=== PATIENT | female | born 1970 | race Caucasian/White ===

== ENCOUNTER 2020-03-06 13:17 | Outpatient (REF) | payer BC, SELFPAY ==
--- NOTE | 2020-03-06 | XR_ITS ---
EXAMINATION: XR WRIST, RIGHT 1 VIEW XR WRIST, RIGHT 2 VIEW CLINICAL INFORMATION: Fracture COMPARISON: 02/25/2020 TECHNIQUE: AP and lateral radiographs of the right wrist in a cast followed by a repeat lateral view of the right wrist. FINDINGS: Redemonstration of the minimally displaced transverse fracture of the distal radius with reduction in dorsal angulation when compared with 02/25/2020. IMPRESSION: Minimally displaced fracture of the distal radius.
== END 2020-03-06 13:18 | disposition home or self-care (01) ==
LOC: CF 13:17
PROVIDERS: PCP Internal Medicine; Visit Provider Orthopaedic Surgery
DX: S52.501D Unspecified fracture of the lower end of right radius, subsequent encounter for closed fracture with routine healing (principal)
CPT/HCPCS: 73100; 99212

== ENCOUNTER 2020-04-03 13:22 | Outpatient (REF) | payer BC, SELFPAY ==
--- NOTE | 2020-04-03 13:27 | XR_ITS ---
EXAMINATION: XR WRIST and hand, RIGHT CLINICAL INFORMATION: Follow-up fracture COMPARISON: Previous x-rays most recent 03/06/2020 TECHNIQUE: 4 views of the right hand and wrist. FINDINGS: There is a transverse nondisplaced fracture of the distal radius. Alignment appears unchanged. There is minimal bony callus formation seen. Fracture line is still seen. No other fracture is seen. Carpal bones are unremarkable. Soft tissues are unremarkable. XR/XR wrist RT min 3V IMPRESSION: No change in right distal radius fracture from 03/06/2020.
--- NOTE | 2020-04-03 14:05 | XR_ITS ---
EXAMINATION: XR WRIST and hand, RIGHT CLINICAL INFORMATION: Follow-up fracture COMPARISON: Previous x-rays most recent 03/06/2020 TECHNIQUE: 4 views of the right hand and wrist. FINDINGS: There is a transverse nondisplaced fracture of the distal radius. Alignment appears unchanged. There is minimal bony callus formation seen. Fracture line is still seen. No other fracture is seen. Carpal bones are unremarkable. Soft tissues are unremarkable. XR/XR hand wrist RT IMPRESSION: No change in right distal radius fracture from 03/06/2020.
== END 2020-04-03 13:23 | disposition home or self-care (01) ==
LOC: HO.HOSX 13:22
PROVIDERS: PCP Internal Medicine; Referring Provider Internal Medicine; Visit Provider Orthopaedic Surgery
DX: S52.509D Unspecified fracture of the lower end of unspecified radius, subsequent encounter for closed fracture with routine healing (principal); Z79.899 Other long term (current) drug therapy
CPT/HCPCS: 73110; 73130

== ENCOUNTER 2020-04-18 13:00 | Outpatient (RCR) | payer BC, SELFPAY ==
--- NOTE | 2020-04-11 14:38 | MHC.OT.OEV ---
[address] [phone] F: [phone] Occupational Therapy Evaluation Diagnosis: Right Distal Radius Fracture Date of Onset: 03/06/20 Attending Provider: Dr Briscoe Prescribed Treatment: Eval and Treat History of Current Condition: Becky slipped on her stairs, landed down on her right hand and heard a pop, went to ED that night, x-ray found non-displaced right distal radius fracture. She was casted, then four weeks later cast removed and now in removable pre-sierra orthosis. 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 Living Situation, Family and/or Social Support: Lives alone with cats, moving in 10 days to [facility] Current Level of Function and Occupation Self Care, Employment, Leisure: Difficulty lifting her cats, opening a jar Sleep: Some pain w/ sleep, unable to use hand to repositioning w/ hand Driving: Now driving, some difficulty w/ steering wheel Pain Assessment Pain Score: 0-8 Pain Scale Used: Numeric (0 - 10) Pain Location and Description: Pain free at rest, more pain w/ supination and pronation, right ulnar wrist moreso than left Aggravating Factors: Playing piano or typing Alleviating Factors: Advil occasionally, no change with ice or heat Skin and Soft Tissue Assessment Skin and Soft Tissue: Swelling Comments: Tenderness to palpate wrist at all aspects, moreso at ulnar wrist w/ depressed ulnar styloid Edema through wrist Nerve assessment Ulnar Nerve: WNL Median Nerve: WNL Radial Nerve: WNL Sensory Assessment Light Touch: WNL Comments: Hypersensitivity/pain to touch dorsal forearm/wrist Edema Assessment Upper Extremity: Right Impaired Comments: Wrist distal to US Right 15.7 cm Left 14.7 cm Dexterity Assessment Dexterity: WNL Comments: AROM(PROM) Strength Shoulder Flexion: Extension: Abduction: Internal Rotation: External Rotation: Comments: WNL Flexion: Extension: Abduction: Internal Rotation: External Rotation: Comments: Elbow Flexion: Extension: Pronation: R 45 L 90 Supination: R 70 L 90 Comments: Ulnar pain at end range pronation Flexion: Extension: Pronation: Supination: Comments: Wrist Flexion: R 60 L 80 Extension: R 66 L 68 Ulnar Deviation: R 30 L 42 Radial Deviation: R 25 L 38 Comments: Flexion: Extension: Ulnar Deviation: Radial Deviation: Comments: Thumb Thumb CMC Flexion: Thumb MCP Flexion: Thumb IP Flexion: Radial Abduction: [place] Abduction: [place] ([place]andji 0-10): 10 B/L'ly Comments: Digits Index MCP: PIP: DIP: Long MCP: PIP: DIP: Ring MCP: PIP: DIP: Small MCP: PIP: DIP: Comments: WNL B/L'ly Gross Grasp: R 25lb L 60lb Lateral Pinch: R 13lb L 14lb Two-Point Pinch: R 5lb L 10lb Three-Jaw Lokesh: R 5lb L 15lb Comments: Pain in ulnar wrist w/ two and three point pinches Patient Education Primary Language: Hebrew 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 Patient demonstrates Patient verbalizes Barriers to Learning: None Readiness for Learning: Accepting Who was educated? Patient Plan of Care Assessment: Heather presents about six weeks s/p FOOSH injury w/ non displaced right distal radius fracture. She was casted four weeks, now in prefab orthosis. She has decreased range and strength w/ cont'd edema in wrist, also reporting more tenderness in ulnar wrist and dorsal forearm/wrist. She cont's to avoid heavy lifting, but is having difficulty w/ light everyday activities such as driving caring for her cats, playing piano and typing. She is scheduled to relocate to [facility] in 10 days, biut until will benefit from services to progress home exercise program w/ range, strength, edema and pain management. STG Duration: 2 weeks Short Term Goals: Ind w/ HEP Right gross grasp 35lb Right wrist ROM improve 5 degrees all aspects Good follow through w/ joint protection/neutral wrist prositioning QuickDASH score <25pts Ind w/ desensitization as needed Reconciling Clerk Goals: Same as above Frequency and Duration: The patient will be seen 2x/wk for 2 weeks Treatment Plan: Therapeutic Exercise Therapeutic Activity Home Exercise Program Splinting Patient Education Desensitization/Sensory Re-ed Edema Control ADL Training Paraffin Fluidotherapy MHP Cold Packs Joint Mobilization Soft Tissue Mobilization Kinesiotaping Electronically Signed By: Anita Rocha, OTR/L Please sign and return to therapist, Thank you for your referral.
--- NOTE | 2020-04-21 08:09 | MHC.OT.DC ---
[address] [phone] F: [phone] Occupational Therapy Discharge Note Provider: Dr. Briscoe Diagnosis: Right Distal Radius Fracture Date of Evaluation: 04/11/20 Date of Discharge: 04/18/20 Treatments to Date: 3 Cancellations to Date: 0 Discharge Status: Progressing Discharge Summary: Kayla has been seen in OT for progression of right wrist/hand strength and range s/p FOOSH injury w/ distal radius fractures. She has been doing well, but is moving to [place], [place] this week. She will continue therapy there are needed. Electronically Signed By: Anita Rocha OTR/L Please Sign and return to therapist, thank you for your referral.
== END 2020-06-23 10:11 | disposition other institution (70) ==
LOC: HO.OT 13:00
PROVIDERS: PCP Internal Medicine; Visit Provider Orthopaedic Surgery
DX: S52.502D Unspecified fracture of the lower end of left radius, subsequent encounter for closed fracture with routine healing (principal)
CPT/HCPCS: 97110; 97165; 97530